=== PATIENT | female | born 1990 | race Caucasian/White ===

== ENCOUNTER → 2020-01-16 | Outpatient (CLI) | payer BC, MEDICAID ==
[~2020-01-16] MED LIST: *ANUSOI PR; ACET65TA OR; ALBU83IN IN; ALBUTEROL INH; CEFT250T PO; CELE20TA OR; DICY20TA11 PO; DIPH2.5L OR; DULO30CA9 PO; FENT1DIS14 TD; FERR324T5 OR; FERR325T OR; FLAG500T OR; FOLI1TAB OR; HYOS0.1248 PO; HYOS0.378 OR; IMOD2TAB16 PO; IMODIUM PO; Imodium PO; KEFL500C OR; LOPE2CAP PO; LOVE1INJ SC; Lomotil PO; MAGN500T2 PO; MIDOL PO; MULTIVIT PO; Magnesium; Magnesium Oxide PO; NAPR-885 PO; NORT1TAB PO; Oxycodone PO; PEPC40TA OR; PERC5TAB8 OR; PERC7.5T8 OR; PERC7.5T8 PO; PERCOCET PO; PRED10TA2 OR; PRED20TA OR; PRED20TA PO; PRED5TAB OR; PREDNISOLINE PO; PREPGEL TOP; PRIL20CA OR; PROM-190 PO; SIME125C OR; TRAM50TA2 OR; Tylenol PO; VALT500T OR; VITA100T OR; XANA0.25 OR; XANA0.25 PO; XANA0.5T OR; ZANT150T OR; ZOFR4TAB16 PO; albuterol INH; albuterol inhaler INH; azathioprine PO; imodium OR; iron OR; lomotil OR; questran PO; remicade IV
--- NOTE | 2020-01-19 01:07 | ECWPNPC ---
PATIENT NAME: MIRACLE HALL : 1990 GENDER: FEMALE VISIT DATE: 01/16/2020 DISCHARGE DATE: 01/16/20 1407 VISIT LOCKED DATE TIME: PHYSICIAN: CAMELIA TREVINO RESOURCE: CAMELIA TREVINO REASON FOR APPOINTMENT 1. CHRONIC PAIN HISTORY OF PRESENT ILLNESS DEPRESSION SCREENING: PHQ-9 LITTLE INTEREST OR PLEASURE IN DOING THINGSNEARLY EVERY DAY FEELING DOWN, DEPRESSED, OR HOPELESSNEARLY EVERY DAY TROUBLE FALLING OR STAYING ASLEEP, OR SLEEPING TOO MUCHNEARLY EVERY DAY FEELING TIRED OR HAVING LITTLE ENERGYNEARLY EVERY DAY POOR APPETITE OR OVEREATING MORE THAN HALF THE DAYS FEELING BAD ABOUT YOURSELF-OR THAT YOU ARE A FAILURE OR HAVE LET YOURSELF OR YOUR FAMILY DOWN NEARLY EVERY DAY TROUBLE CONCENTRATING ON THINGS, SUCH READING THE NEWSPAPER OR WATCHING TELEVISION SEVERAL DAYS MOVING OR SPEAKING SO SLOWLY THAT OTHER PEOPLE COULD HAVE NOTICED. OR THE OPPOSITE- BEING SO FIDGETY OR RESTLESS THAT YOU HAVE BEEN MOVING AROUND A LOT MORE THAN USUALNOT AT ALL THOUGHTS THAT YOU WOULD BE BETTER OFF , OR OF HURTING YOURSELF IN SOME WAY?MORE THAN HALF THE DAYS(CONSIDER SUICIDE ASSESSMENT RISK) TOTAL SCORE:20 INTERPRETATIONSEVERE DEPRESSION PHQ-2 (2015 EDITION) LITTLE INTEREST OR PLEASURE IN DOING THINGS?NEARLY EVERY DAY FEELING DOWN, DEPRESSED, OR HOPELESS?NEARLY EVERY DAY TOTAL SCORE6 GENERAL: 29-YEAR-OLD FEMALE REFERRED BY DR. DUKE, PRIMARY CARE TO EVALUATE CHRONIC GENERALIZED BODY PAIN. HISTORY OF MULTIPLE COMORBIDITIES TO INCLUDE CROHN'S DISEASE. HAS BEEN TO RHEUMATOLOGY IN THE PAST AND HAS HAD REACTIONS TO METHOTREXATE AND HUMIRA. SHE STATES THEY WERE TRYING TO TREAT GENERALIZED INFLAMMATORY ARTHRITIC PAIN SECONDARY TO CROHN'S DISEASE. HAS BEEN ON MULTIPLE MEDICATIONS OVER THE YEARS TO INCLUDE NARCOTIC PAIN MEDICATIONS. CURRENTLY USING MEDICAL MARIJUANA CAPSULES. CURRENTLY ON PREDNISONE FOR CROHN'S INFLAMMATORY BOWEL DISEASE FLAREUP. FEELS BETTER IN REGARDS TO PAIN ON PREDNISONE BUT SHE IS AWARE SHE CAN'T BE ON THIS CHRONICALLY.- - -. FALL RISK SCREENING: SCREENING :ONE FALL WITHOUT INJURY IN THE PAST YEAR PAIN SCREENING: PATIENT HAS A COMPLAINT OF ACUTE OR CHRONIC PAIN :YES LOCATION OF PAIN: WHOLE BODY INTENSITY OF PAIN (SCALE OF 1 TO 10):3 WHAT DOES YOUR PAIN FEEL LIKE:ACHING, SHARP, THROBBING DURATION:CONTINOUS, CONSTANT PAIN IS INCREASED BY:ACTIVITIES PAIN IS DECREASED BY:OTHERS HEAT, [employer]ICAL [employer] LEVEL OF RELIEF FROM PAIN TREATMENTS IN THE PAST:0% PAIN HAS INTERFERED WITH THE FOLLOWING:BATHING/DRESSING, WALKING ABILITY, HOUSEWORK, SLEEP, TRANSPORTATION, TOILETING NURSING NOTE: - - -. PAIN CENTER INTAKE QUESTIONS: DO YOU HAVE A HISTORY OF MRSA? :NO DO YOU TAKE A BLOOD THINNERS? :NO DO YOU HAVE ANY BLEEDING DISORDERS? :NO ANY NEW NUMBNESS OR WEAKNESS IN YOUR LEGS OR ARMS? :NO ANY PACEMAKER,DEFIBRILLATOR, OR DORSAL COLUMN STIMULATOR? :NO DO YOU HAVE ANY RASHES OR OPEN SORES? :NO ARE YOU ALLERGIC TO IV DYE? :NO ARE YOU DIABETIC? :NO ANY NEW PROBLEMS WITH YOUR MEDICATIONS? :NO HAVE YOU RECEIVED A VACCINE IN THE PAST 30 DAYS? :NO DO YOU PLAN TO RECEIVE A VACCINE IN THE NEXT 21 DAYS? :YES FLU VACCINE DO YOU NEED ANY PRESCRIPTION? :NO DO YOU TAKE ANY IMMUNOSUPPRESSIVE MEDICATIONS? :NO CURRENT MEDICATIONS TAKING PREDNISONE 1 TAB ORAL TAKING DICYCLOMINE HCL 20 MG TABLET 1 TABLET ORALLY THREE TIMES A DAY TAKING VITAMIN B12 3000 MCG TABLET SUBLINGUAL 5000 MCG SUBLINGUAL DAILY TAKING VITAMIN D (ERGOCALCIFEROL) 1.25 MG (30823 UT) CAPSULE 1 CAPSULE ORALLY TAKING LEVOCETIRIZINE DIHYDROCHLORIDE 5 MG TABLET 1 TABLET IN THE EVENING ORALLY BID TAKING LOPERAMIDE HCL 2 MG CAPSULE 1 CAPSULE NEEDED ORALLY BID TAKING PROMETHAZINE HCL 25 MG TABLET 1 TABLET NEEDED ORALLY Q 6 HRS PRN TAKING PROAIR HFA 108 (90 BASE) MCG/ACT AEROSOL SOLUTION 2 PUFFS NEEDED INHALATION QID PRN TAKING MELATONIN 3 MG TABLET 4 TABLET AT BEDTIME NEEDED ORALLY ONCE A DAY TAKING LIPITOR 10 MG TABLET 1 TABLET ORALLY ONCE A DAY TAKING CARVEDILOL 12.5 MG TABLET 1 TABLET WITH FOOD ORALLY DAILY TAKING CYCLOBENZAPRINE HCL 10 MG TABLET 1 TABLET AT BEDTIME NEEDED ORALLY ONCE A DAY TAKING HYDRALAZINE HCL 25 MG TABLET 1 TABLET WITH FOOD ORALLY THREE TIMES A DAY TAKING MAGNESIUM 100 MG TABLET 4 TABLETS WITH A MEAL ORALLY ONCE A DAY TAKING TRAZODONE HCL 150 MG TABLET 1 TABLET AT BEDTIME ORALLY ONCE A DAY TAKING MAY USE MEDICAL MARIJUANN CAPSULE PO PRN MEDICATION LIST REVIEWED AND RECONCILED WITH THE PATIENT PAST MEDICAL HISTORY CHROHN'S DISEASE ASTHMA PNEUMOTHORAX DEPRESSION SOCIAL ANXIETY POLYCYSTIC OVARIAN SYNDROM CHRONIC HEADACHES/MIGRAINES ALLERGIES BIAXIN: HIVES - ALLERGY ZOSYN: HIVES - ALLERGY SULFA (FOR ALLERGY USE ONLY): HIVES - ALLERGY IMURAN: LOW PLATELETS - ALLERGY SANDOSTATIN: PALPITATIONS - ALLERGY RED 40: DIARRHEA - ALLERGY HUMIRA: PSORIASIS - ALLERGY MORPHINE SULFATE: HTN - ALLERGY VICODIN: HEADACHES - ALLERGY SURGICAL HISTORY TOTAL COLECTOMY J POUCH SCAR TISSUE REPAIR FISTULA REPAIR OSTOMY TAKE DOWNS X 2 FAMILY HISTORY FATHER: MOTHER: ALIVE 1 BROTHER(S) . SOCIAL HISTORY GENERAL: TOBACCO USE ARE YOU A:NONSMOKER LATEX QUESTIONNAIRE LATEX ALLERGY : HAVE YOU EVER DEVELOPED ANY TYPE OF REACTION AFTER HANDLING LATEX PRODUCTS SUCH RUBBER GLOVES, CONDOMS, DIAPHRAGMS, BALLOONS, SOCKS, OR UNDERWEAR?NO LATEX ALLERGY : HAVE YOU EVER DEVELOPED ANY TYPE OF REACTION DURING OR AFTER DENTAL APPOINTMENT, VAGINAL/RECTAL EXAMINATION, SURGICAL PROCEDURE, OR ANY OTHER EXPOSURE?NO LATEX RISK : HAVE YOU EVER HAD ANY DIFFICULTY BREATHING OR HIVES AFTER EATING OR HANDLING ANY FRUITS, OR VEGETABLES; SUCH KIWI, BANANAS, STONE FRUITS, OR CHESTNUTSNO LATEX RISK : DO YOU HAVE A PREVIOUS PERSONAL HISTORY OF MORE THAN NINE SURGERIES, SPINA BIFIDA, OR REPEATED CATHERIZATIONS? NO LATEX RISK : ARE YOU FREQUENTLY EXPOSED TO LATEX PRODUCTS IN YOUR OCCUPATION?NO DATE ASKED : 01/16/2020 ALCOHOL SCREENING DID YOU HAVE A DRINK CONTAINING ALCOHOL IN THE PAST YEAR?NO POINTS0 INTERPRETATIONNEGATIVE RECREATIONAL DRUG USE DRUG USE?YES HOW OFTEN AND HOW MUCH? [facility] LANGUAGE LANGUAGES SPOKEN:WELSH LEARNING BARRIERS / SPECIAL NEEDS BARRIERS TO LEARNING?NO HEARING IMPAIRED?NO VISION IMPAIRED?YES :CORRECTIVE LENSES COGNITIVELY IMPAIRED?NO READINESS TO LEARN?YES LEARNING PREFERENCES?NO LEARNING CAPABILITIES PRESENT?YES EMOTIONAL BARRIERS?NO SPECIAL DEVICES?YES :CANE, WHEELCHAIR DOMESTIC VIOLENCE DO YOU FEEL SAFE IN YOUR ENVIRONMENT?YES PAIN CLINIC PFS, CLERGY, PUBLIC HEALTH REFERRALS HAS THE PATIENT BEEN EDUCATED REGARDING HIS/HER PLAN OF CARE?YES HAS THE PATIENT BEEN EDUCATED REGARDING PAIN, THE RISK FOR PAIN, THE IMPORTANCE OF EFFECTIVE PAIN MANAGEMENT, AND THE PAIN ASSESSMENT PROCESS?YES ADVANCE DIRECTIVE ADVANCE DIRECTIVE DISCUSSED WITH PATIENT:YES [facility] HOSPITALIZATION/MAJOR DIAGNOSTIC PROCEDURE SURGERIES REVIEW OF SYSTEMS CONSTITUTIONAL: ANY RECENT FEVER NO . CHILLS NO . WEIGHT CHANGE OF UNKNOWN REASONS NO . GASTROENTEROLOGY: NEW UNEXPLAINABLE CHANGES IN BOWEL CONTROL NO . CONSTIPATION NO . GENITOURINARY: ANY NEW CHANGE IN BLADDER CONTROL? NO . NEUROLOGY: NEW ONSET DIZZINESS OR NEUROLOGICAL CHANGES NOT MENTIONED NO . NEW NUMBNESS OR PAIN PATTERNS NOT MENTIONED AND PERTINENT TO TODAY'S VISIT NO . CARDIOLOGY: NEW CHEST PRESSURE NO . NEW CHEST PAIN NO . RESPIRATORY: UNEXPLAINABLE COUGH NO . NEW SHORTNESS OF BREATH NO . VITAL SIGNS WT 433.2 LBS, HT 57 IN, BMI 93.73 INDEX, BP 186/104 MM HG, HR 99 /MIN, RR 18 /MIN, TEMP 96.0 F, OXYGEN SAT % 100%, SAFE IN ENV? (Y/N) Y, NA INITIALS AW 1307, REVIEWED BY: EMLET NURSE KNOW ABOUT BP. EXAMINATION GENERAL EXAMINATION: GENERALAWAKE,ALERT ,PLEASANT MORBIDLY OBESE. IN WHEELCHAIR. PSYCHAFFECT NORMAL . LUNGS:LUNG FRY ARE CLEAR TO AUSCULTATION BILATERALLY. GOOD MOVEMENT OF AIR . HEART:S1, S2 IN A REGULAR RATE AND RHYTHM. NO SIGNIFICANT MURMURS, RUBS OR GALLOPS NOTED . ASSESSMENTS PAIN SYNDROME, CHRONIC - G89.4 (PRIMARY) TREATMENT PAIN SYNDROME, CHRONIC NOTES: REVIEWED MEDICATIONS BUT REALLY HAVE NO OTHER MEDICATION TRIALS TO OFFER. I WOULD RESERVE ANY MEDICATIONS I.E. OTHER PAIN MEDICATIONS TO DR. MARINO DISCRETION. TALKED ABOUT INJECTION THERAPY FOR INCREASED PAIN THAT MAY BE ASSOCIATED WITH NERVE IMPINGEMENT . DISCUSSED THERAPY FOR DEPRESSION AND ANXIETY. PATIENT DENIES SUICIDAL OR HOMICIDAL IDEATIONS. SHE IS AWARE OF [facility] WALK-IN HOURS WEDNESDAY THROUGH WEDNESDAY. STATES THAT DR. DUKE IS WORKING ON REFERRING HER TO PSYCHIATRIST. PATIENT WAS ADVISED TO CALL US IF SHE WOULD LIKE TO CONSIDER INJECTION THERAPY FOR SEVERE FLAREUPS OF NERVE IMPINGEMENT PAIN THAT FAILS CONSERVATIVE TREATMENT. PROCEDURE CODES FA211 ESTABILISHED PATIENT [facility] FACILITY CHARGE DISPOSITION & COMMUNICATION FOLLOW UP PATIENT WILL CALL FOR FOLLOW-UP APPOINTMENT IF NECESSARY (REASON: GENERALIZED PAIN SYNDROME) ELECTRONICALLY SIGNED BY TRACY NEWTON ON 01/18/2020 AT 03:55 PM EST DISCLAIMER : THIS IS A VISIT SUMMARY EXTRACTED FROM THE [employer] CHART. IT IS NOT A COPY OF THE [employer] PROGRESS NOTE. ANA
== END ==
LOC: M PAIN 13:00
PROVIDERS: ATTEND Nurse Practitioner Family
DX: G89.4 Chronic pain syndrome (principal); K50.90 Crohn's disease, unspecified, without complications; J45.909 Unspecified asthma, uncomplicated; F32.9 Major depressive disorder, single episode, unspecified; E28.2 Polycystic ovarian syndrome; G43.709 Chronic migraine without aura, not intractable, without status migrainosus; Z79.52 Long term (current) use of systemic steroids; Z79.899 Other long term (current) drug therapy; Z88.2 Allergy status to sulfonamides; Z88.5 Allergy status to narcotic agent; Z88.8 Allergy status to other drugs, medicaments and biological substances; Z88.1 Allergy status to other antibiotic agents

== ENCOUNTER → 2020-02-06 | Outpatient (CLI) | payer MEDICAID, MEDICARE ==
[~2020-02-06] MED LIST changes: +GASTROGRAFIN SOLUTION 30ML (Q9963) As Ordered ONE; +ISOVUE-370 76% 100ML VIAL As Ordered ONE
--- NOTE | 2020-02-06 14:18 | REP ---
INDICATION: OTHER ULCERATIVE COLITIS WITHOUT COMPLICATIONS. COMPARISON: Abdomen and pelvis CT with IV and bowel contrast dated 08/03/2013. TECHNIQUE: Abdomen and pelvis CT with bowel contrast, without IV contrast FINDINGS: The patient has a history of ulcerative colitis. I do not identify any colonic bowel loop suggesting there is a total colonectomy. The small bowel loops are unremarkable. There are 2 wide-mouth ventral hernias 1 to the right of midline and the other to the left midline the 1 to the right of midline measures 6.0 cm transversely and 2.0 cm in depth and contains a bowel loop. The hernia to the left of midline is slightly inferior to the 1 on the right and contains predominantly omental fat although a small portion of a bowel loop is also included. This hernia measures 5 0.4 cm transversely by 1.9 cm in depth. The visualized lung tripathi are unremarkable. The unenhanced hepatic parenchyma is unremarkable. There are surgical clips in the gallbladder fossa. The unenhanced pancreas and spleen are unremarkable except that the spleen measures 15 a 16 cm AP diameter and is enlarged. It is unchanged in size from the prior study. The adrenals are unremarkable. The unenhanced kidneys are unremarkable. The abdominal aorta is unremarkable. There is no periaortic adenopathy or mass. The remaining bowel loops are unremarkable. The mesentery is unremarkable. Pelvis: Imaging artifact obscures the uterus and adnexa. No gross abnormalities are identified. The bladder is unremarkable. There is no ascites or adenopathy. Skeletal structures including the sacroiliac articulations are unremarkable except for mild lumbar spine degenerative disc disease. IMPRESSION: I suspect there is a total colonectomy. There are 2 ventral hernias as described. There are surgical clips in the gallbladder fossa. Splenomegaly, unchanged. <Electronically signed by Cayden Granados > 02/06/20 [id number]
== END ==
LOC: M RAD 08:48
PROVIDERS: ATTEND Internal Medicine Gastroenterology
DX: K52.9 Noninfective gastroenteritis and colitis, unspecified (principal); K51.80 Other ulcerative colitis without complications; K44.9 Diaphragmatic hernia without obstruction or gangrene; Z97.8 Presence of other specified devices; R16.1 Splenomegaly, not elsewhere classified
CPT/HCPCS: 74176; Q9963

== ENCOUNTER 2023-01-22 11:21 | Emergency (ER) | payer MEDICARE, MEDICAID ==
[~2023-01-22] VITALS: Ht 167.6 cm; Wt 192.8 kg
[~2023-01-22 11:21] MED LIST changes: -DICY20TA11 PO; +DICY20TA20 PO; -GASTROGRAFIN SOLUTION 30ML (Q9963) As Ordered ONE; -ISOVUE-370 76% 100ML VIAL As Ordered ONE
[2023-01-22] MEDS ORDERED: NORCO, ANEXSIA 5/325MG TABLET (HYDROcodone/ACETAMINOPHEN) PO ONE (13:30)
[2023-01-22] MEDS ORDERED: PERCOCET 5MG/325MG TAB PO ONE (13:55)
[2023-01-22] MEDS ORDERED: ASPE4PAD TOP (15:45)
[2023-01-22 16:29] VITALS: BP 119/79; TEMP 97.7; O2SAT 99
== END 2023-01-22 16:34 | disposition home or self-care (01) ==
LOC: M ED 11:21
DX: S33.5XXA Sprain of ligaments of lumbar spine, initial encounter (principal); S33.6XXA Sprain of sacroiliac joint, initial encounter; M51.27 Other intervertebral disc displacement, lumbosacral region; Z88.0 Allergy status to penicillin; Z88.8 Allergy status to other drugs, medicaments and biological substances; Z88.1 Allergy status to other antibiotic agents; Z88.5 Allergy status to narcotic agent; Z79.51 Long term (current) use of inhaled steroids; Z79.899 Other long term (current) drug therapy; Z79.1 Long term (current) use of non-steroidal anti-inflammatories (NSAID); Z79.891 Long term (current) use of opiate analgesic

== ENCOUNTER → 2024-09-12 | Outpatient (REF) | payer MEDICARE, MEDICAID ==
[~2024-09-12] MED LIST changes: +ASPE4PAD TOP
== END ==
LOC: M SFHCADAM 14:37
PROVIDERS: ATTEND Physician Assistant
DX: D48.5 Neoplasm of uncertain behavior of skin (principal)

== ENCOUNTER → 2024-10-31 | Outpatient (REF) | payer MEDICARE, MEDICAID ==
[2024-10-31 18:11] LABS: IRON (FE) 31.0 UG/DL (50-170); PERCENT SATURATION 7.8 % (13.2-45.0)
[2024-10-31 18:16] LABS: VITAMIN B12 LEVEL 643.0 PG/ML (211-911)
[2024-11-02 10:37] LABS: PROTEIN, TOTAL SO 7.6 g/dL (6.1-8.1)
[2024-11-06 08:06] LABS: ALBUMIN SO 3.3 g/dL (3.8-4.8); ALPHA 1 GLOBULINS SO 0.4 g/dL (0.2-0.3); ALPHA 2 GLOBULINS SO 1.0 g/dL (0.5-0.9); BETA 2 GLOBULIN SO 0.6 g/dL (0.2-0.5); BETA GLOBULIN SO 0.6 g/dL (0.4-0.6); GAMMA GLOBULINS SO 1.6 g/dL (0.8-1.7)
== END ==
LOC: M LAB REF 17:44
PROVIDERS: ATTEND Internal Medicine Nephrology
DX: N18.9 Chronic kidney disease, unspecified (principal); D63.1 Anemia in chronic kidney disease